=== PATIENT | female | born 1980 | race Caucasian/White ===

== ENCOUNTER 2018-06-02 11:08 | Emergency (ER) | payer MEDICAID, OTHER ==
[~2018-06-02] VITALS: Ht 167.6 cm; Wt 59.0 kg
[~2018-06-02 11:08] MED LIST: MECL-111 PO; NITR-79 PO; ONDA4TAB6 PO; PHEN-786 PO; PRED20TA PO; ZOF4T PO
[2018-06-02 11:13] VITALS: BP 108/79
[2018-06-02] MEDS ORDERED: azithromycin 250mg tablet PO ONE (12:20)
[2018-06-02] MEDS ORDERED: AZIT-63 PO (12:21)
== END 2018-06-02 12:36 | disposition home or self-care (01) ==
LOC: ER 11:08
DX: J02.9 Acute pharyngitis, unspecified (principal); F15.90 Other stimulant use, unspecified, uncomplicated; F17.210 Nicotine dependence, cigarettes, uncomplicated; Z98.890 Other specified postprocedural states; Z88.0 Allergy status to penicillin; Z79.2 Long term (current) use of antibiotics; Z79.899 Other long term (current) drug therapy
CPT/HCPCS: 99283

== ENCOUNTER 2019-01-24 23:48 | Emergency (ER) | payer MEDICAID ==
[~2019-01-24] VITALS: Ht 165.1 cm; Wt 61.3 kg
[2019-01-24 23:50] VITALS: BP 105/70
[2019-01-25] MEDS ORDERED: ketorolac trometh inj. 60 MG/2 ML VIAL IM ONE (00:15)
[2019-01-25] MEDS ORDERED: cyclobenzaprine 10mg tablet PO ONE (00:15)
[2019-01-25 01:09] LABS: URINE HCG NEGATIVE (NEG)
[2019-01-25 01:18] LABS: CLARITY,URINE CLOUDY (Clear); COLOR,URINE YELLOW (Yellow); GLUCOSE, URINE NEGATIVE (Neg); KETONES,URINE NEGATIVE (Neg); LEUKOCYTE ESTERASE ,URINE MODERATE (Neg); NITRITES, URINE NEGATIVE (Neg); OCCULT BLOOD,URINE NEGATIVE (Neg); PROTEIN,URINE NEGATIVE (Neg); UA COLLECTION TYPE CLN CATCH MIDSTREAM; UROBILINOGEN,URINE 0.2 E.U/dL (0.2-1.0)
[2019-01-25 01:24] LABS: BACTERIA,URINE 4+ /HPF (Neg); RBC,URINE NONE SEEN /HPF (0-2); SQUAMOUS EPITHELIAL CELL,UR MODERATE /LPF (FEW); WBC,URINE 30-50 /HPF (0-4)
[2019-01-25] MEDS ORDERED: nitrofuran/nitrofuran macrocrysal 100 MG capsule PO ONE (01:35)
[2019-01-25] MEDS ORDERED: NITR100C6 PO (01:39)
[2019-01-25] MEDS ORDERED: CYCL-1 PO (01:39)
== END 2019-01-25 02:05 | disposition home or self-care (01) ==
LOC: ER 23:49
DX: N39.0 Urinary tract infection, site not specified (principal); M54.5 Low back pain; M62.830 Muscle spasm of back; G89.29 Other chronic pain; F15.90 Other stimulant use, unspecified, uncomplicated; Z98.890 Other specified postprocedural states; Z88.0 Allergy status to penicillin; Z79.899 Other long term (current) drug therapy
CPT/HCPCS: 81001; 81025; 87077; 87088; 87186; 96372; 99283; J1885

== ENCOUNTER 2020-04-25 21:28 | Emergency (ER) | payer MEDICAID ==
[~2020-04-25] VITALS: Ht 165.1 cm; Wt 54.5 kg
[~2020-04-25 21:28] MED LIST changes: +CYCL-1 PO; -MECL-111 PO; +MECL-159 PO; +NITR100C6 PO
[2020-04-25 21:30] VITALS: BP 116/85
[2020-04-25] MEDS ORDERED: azithromycin 250mg tablet PO ONE (23:15)
[2020-04-25] MEDS ORDERED: CefTRIAXone 250MG IM Kit w/LIDOcaine IM ONE (23:15)
[2020-04-25] MEDS ORDERED: MICO45CR11 VG (23:36)
== END 2020-04-25 23:51 | disposition home or self-care (01) ==
LOC: ER 21:29
DX: A64 Unspecified sexually transmitted disease (principal); G89.29 Other chronic pain; F15.90 Other stimulant use, unspecified, uncomplicated; Z87.440 Personal history of urinary (tract) infections; Z98.890 Other specified postprocedural states; Z88.0 Allergy status to penicillin; Z79.2 Long term (current) use of antibiotics; Z79.899 Other long term (current) drug therapy
CPT/HCPCS: 96372; 99283; J0696

== ENCOUNTER 2024-04-17 14:53 | Emergency (ER) | payer MEDICAID ==
[~2024-04-17] VITALS: Ht 165.1 cm; Wt 63.6 kg
[~2024-04-17 14:53] MED LIST changes: -MECL-159 PO; +MECL-302 PO
[2024-04-17 15:09] VITALS: BP 113/74; PULSE 93; RESP 16; O2SAT 99
[2024-04-17] MEDS ORDERED: CLIN300C3 PO (16:28)
[2024-04-17] MEDS: clindamycin 150mg capsule PO ONE (16:53)
[2024-04-17 16:58] VITALS: TEMP 98.2
== END 2024-04-17 17:01 | disposition home or self-care (01) ==
LOC: ER 14:53
DX: K04.7 Periapical abscess without sinus (principal); K02.9 Dental caries, unspecified; G89.29 Other chronic pain; M54.9 Dorsalgia, unspecified; F15.90 Other stimulant use, unspecified, uncomplicated; Z98.890 Other specified postprocedural states; Z79.899 Other long term (current) drug therapy; Z88.0 Allergy status to penicillin
CPT/HCPCS: 99283

== ENCOUNTER 2025-03-08 21:26 | Emergency (ER) | payer MEDICAID ==
[~2025-03-08] VITALS: Ht 165.1 cm; Wt 63.0 kg
[2025-03-08 21:47] VITALS: BP 121/79; PULSE 88; RESP 18; O2SAT 100
--- NOTE | 2025-03-08 23:57 | Physician Documentation ---
HPI ~ General Chief Complaint: Tooth Problem Stated Complaint: TOOTH PAIN Time Seen by MD: 23:06 Primary Medical Doctor: NHAN MELGAR History of Present Illness HPI Comment Is a very pleasant 44-year-old female that presents to the emergency department for 2 days of pain and swelling to the right lower gumline. Patient reports he has a fractured tooth or dental caries on that side correlating with the area of swelling and pain. Patient reports he has tried Tylenol ibuprofen with minimal improvement. Patient denies difficulty swallowing difficulty breathing fever chills nausea vomiting diarrhea at this time. Patient reports allergies to penicillin. Medication Reconciliation Allergies: Coded Allergies: Penicillins (Verified Allergy, Intermediate, 04/17/24) Uncoded Allergies: ALL CILLINS (Allergy, Intermediate, 03/08/11) Scheduled Meclizine HCl (Meclizine HCl), 1 TABLET PO QID Nitrofurantoin Macrocrystal (Macrodantin), 1 CAP PO BID Nitrofurantoin Monohyd/M-Cryst (Macrobid 100 mg Capsule), 1 CAP PO Q12H Ondansetron Hcl (Zofran), 1 TABLET PO Q8H Ondansetron ODT* (Zofran ODT*), 4 MG PO Q6H Phenazopyridine Hcl (Pyridium tablet), 1 TAB PO TID Prednisone* (Prednisone*), 2 TAB PO DAILY Scheduled PRN Cyclobenzaprine* (Cyclobenzaprine*), 1 TAB PO TID PRN for pain Phenazopyridine Hcl (Pyridium tablet), 1 TAB PO Q8H PRN for pain Phenazopyridine Hcl (Pyridium tablet), 2 TAB PO Q8H PRN for pain Past Medical History Past Medical History: Vertigo, UTI, Chronic Back Pain Past Surgical History: Alcohol Use: Rarely Drug Use: methamphetamine Lives with: Family Lives In: Home Occupation: employed Review of Systems ROS As stated above in the HPI, otherwise all systems are reviewed and negative. Physical Exam Vital Signs: Temperature: 98.5, Heart Rate: 88, Respiratory Rate: 18, BP: 121/79, Pulse Oximetry: 100, Weight: 63.000 Physical Exam VITALS: Reviewed and as above. GENERAL: Alert, no apparent distress. HEENT: Normocephalic, atraumatic, PERRL, EOMI, dry mucosa, moderate swelling erythema and area of abscess noted in the right lower gumline at approximately the 2nd molar, lymphadenopathy noted to the right submandibular lymph nodes during examination. SKIN: Warm and dry, no rash NEURO: Oriented x4, No motor or sensory deficit PSYCH: Normal mood and affect, no agitation Progress Results/Orders Results/Orders Vital Signs 03/08/25 21:47 Temp 98.5 Pulse 88 Resp 18 B/P (MAP) 121/79 Pulse Ox 100 Medical Decision Making Additional information obtaine: other Findings 44-year-old female presented with two days of right lower gum pain and swelling. Symptoms correlate with a fractured tooth or dental caries. She attempted acetaminophen and ibuprofen with minimal relief. Denies fever, chills, dysphagia, dyspnea, nausea, vomiting, or diarrhea. No systemic involvement noted. In the ED, she received ketorolac IM, acetaminophen PO, and her first dose of oral antibiotics. Allergy to penicillin documented; no history of anaphylaxis, angioedema, or urticaria. Physical exam: localized swelling and tenderness of right lower gumline, no airway compromise, no facial space involvement. Assessment: Likely localized acute apical abscess or odontogenic infection wit hout systemic involvement. No evidence of deep space infection or sepsis. Medical decision-making: Antibiotic selection: Per [employer] guidelines, for penicillin-allergic patients without severe allergy history, oral cephalexin (500 mg QID for 37 days) is recommended. If history of anaphylaxis, angioedema, or hives, azithromycin (500 mg day 1, then 250 mg daily for 4 days) or clindamycin (300 mg QID for 37 days) are alternatives. Clindamycin carries increased risk of C. difficile infection and higher treatment failure rates; use with caution and instruct patient on warning signs. Pain management: NSAIDs and acetaminophen are effective for dental pain; patient may continue alternating ibuprofen and acetaminophen as needed. Definitive care: Urgent dental follow-up for definitive management (e.g., root canal, extraction) is required. Antibiotics are adjunctive and not curative for source control. Monitoring: Patient instructed to seek care for worsening symptoms (fever, increased swelling, difficulty swallowing/breathing, or new GI symptoms). Re- evaluation recommended within 3 days. Discontinue antibiotics 24 hours after symptom resolution. Disposition: Stable for discharge. Prescribed oral antibiotics per above, pain control regimen, and dental referral. Provided education on signs of treatment failure and adverse drug reactions. Differential Dx:Considerations: Include: Alveolar fracture, Alveolar osteitis, ANUG, Facial Cellulitis, Periapical abscess, Peridontal abscess, Post-extraction bleeding, Pulpitis, Tooth avulsion, Tooth eruption, Tooth Fracture, Trigeminal neuralgia, Tooth subluxation, Other Departure Disposition: 01 HOME / SELF CARE / HOMELESS Impression: Primary Impression: Toothache Additional Impressions: Dental abscess Dental caries Condition: Stable Discharge Instructions: Dental Caries, Adult, Dental Abscess, Dental Pain Additional Instructions: You are being sent home with cephalexin (Keflex) to treat your dental infection. Please read these instructions carefully to help you recover safely. How to take your medicine: Take cephalexin exactly as prescribed: one pill, four times a day (about every 6 hours) for 7 days. Try to take it at the same times each day. You may take cephalexin with or without food. Do not skip doses, and do not stop taking the medicine early, even if you start to feel better. Stopping early or missing doses can make the infection harder to treat and may cause bacteria to become resistant to antibiotics. What to expect: It is common to feel better after a few days, but you must finish all the medicine. Cephalexin treats bacterial infections only. It will not help with viral infections like the common cold. Possible side effects: The most common side effect is diarrhea. This usually goes away after you finish the medicine. Rarely, some people may get watery or bloody stools (sometimes with stomach pain and fever), even up to two months after finishing the medicine. If this happens, call your doctor right away. Other possible side effects include nausea, vomiting, stomach pain, rash, itching, or allergic reactions. If you notice swelling of your face or throat, trouble breathing, or a severe rash, get medical help immediately. Precautions: Tell your doctor if you have kidney problems or a history of stomach or bowel disease, especially colitis. If you are taking blood thinners or have poor nutrition, let your doctor know, as cephalexin can affect blood clotting. If you are or , discuss with your doctor before starting this medicine. Other instructions: If you miss a dose, take it as soon as you remember. If it is almost time for your next dose, skip the missed dosedo not take two doses at once. Store the medicine at room temperature, away from moisture and heat. Follow up with your dentist as soon as possible for definitive treatment of your dental problem. When to call your doctor: If you have severe diarrhea, bloody stools, or stomach pain. If you develop a rash, itching, swelling, or trouble breathing. If your symptoms do not improve after a few days, or if they get worse. Remember: Take all of your medicine, even if you feel better. This helps make sure the infection is fully treated and helps prevent antibiotic resistance. If you have any questions or concerns, contact your healthcare provider. Referrals: NO PRIMARY CARE PROVIDER (PCP) Prescriptions Cephalexin*Monohydrate* (Keflex*) 500 Mg Capsule 1 CAP PO QID for 7 Days, #28 CAP Prov: ADRIANA ALEX 03/08/25 Education Educated: Patient Educated regarding: diagnosis, treatment, need for follow up Signature Scribe Signature: AScribed for Adriana Alex by SANDRA Valdez . 03/09/25 00:01 Attestation: Scribed for Adriana Alex by SANDRA Valdez . 03/09/25 00:01 ADRIANA ALEX Mar 08, 2025 23:57
[2025-03-08] MEDS ORDERED: CEPH-585 PO (23:59)
[2025-03-09] MEDS: ketorolac trometh 30MG/ML vial 30 MG/ML VIAL IM ONE (00:26)
[2025-03-09 00:30] VITALS: TEMP 98.5
== END 2025-03-09 00:31 | disposition home or self-care (01) ==
LOC: ER 21:26
DX: K04.7 Periapical abscess without sinus (principal); K02.9 Dental caries, unspecified; G89.29 Other chronic pain; F15.90 Other stimulant use, unspecified, uncomplicated; Z88.0 Allergy status to penicillin; Z87.440 Personal history of urinary (tract) infections; Z79.899 Other long term (current) drug therapy; Z98.890 Other specified postprocedural states
CPT/HCPCS: 96372; 99283; J1885